=== PATIENT | female | born 1965 | race African-American/Black ===

== ENCOUNTER 2017-11-17 19:14 | Emergency (ER) | END 2017-11-17 20:10 | disposition home or self-care (01) ==

== ENCOUNTER 2019-05-03 12:00 | Emergency (ER) | payer SELFPAY ==
[~2019-05-03] VITALS: Ht 172.7 cm; Wt 108.0 kg
[~2019-05-03 12:00] MED LIST: ACET80DR72; AMOX500C2 PO; GUAI473L22 PO; IBUP-1542 PO; PHEN20SP2; SODI30SP2 NS
[2019-05-03 12:16] VITALS: BP 134/78; PULSE 81; RESP 18; Ht 172.7 cm; Wt 108.0 kg
[2019-05-03] MEDS ORDERED: IBUP-1542 PO (12:56)
[2019-05-03] MEDS ORDERED: AMOX500C2 PO (12:56)
--- NOTE | 2019-05-03 13:00 | ERD ---
ER Documentation Chief Complaint Chief Complaint pt is bib self with c/o sore throat and cough for 3 days HPI 54-year-old female presents with sore throat and chills for last 3 days. Her s on was recently treated for strep throat last week. She denies cough, shortness breath, chest pain, vomiting, abdominal pain. ROS All systems reviewed and are negative except as per history of present illness. Medications Home Meds Active Scripts Ibuprofen* (Motrin*) 600 Mg Tab, 600 MG PO Q6, #15 TAB Prov:CASEY VELAZQUEZ MD 05/03/19 Amoxicillin* (Amoxicillin*) 500 Mg Cap, 500 MG PO TID for 10 Days, CAP Prov:CASEY VELAZQUEZ MD 05/03/19 Ibuprofen* (Motrin*) 600 Mg Tab, 600 MG PO Q6, #30 TAB Prov:ARNOL HANSON PA-C 11/17/17 Amoxicillin* (Amoxicillin*) 500 Mg Cap, 500 MG PO TID for 10 Days, CAP Prov:ARNOL HANSON PA-C 11/17/17 Guaifenesin-Codeine Phosphate* (Guaifenesin* AC Cough Syrup) 473 Ml Liquid, 5 ML PO Q4H PRN for COUGH, #120 ML Prov:THOMAS KING. 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 Ibuprofen* (Motrin*) 600 Mg Tab, 600 MG PO Q6, #30 TAB Prov:RYAN SMITH PA-C 04/25/16 Amoxicillin* (Amoxicillin*) 500 Mg Cap, 500 MG PO TID for 10 Days, CAP Prov:RYAN SMITH PA-C 04/25/16 Reported Medications Phenol (Chloraseptic) 20 Ml [place], PRN 01/25/13 Acetaminophen (Tylenol) 80 Mg/0.8 Ml Drops.susp, PRN 01/25/13 Allergies Allergies: Coded Allergies: No Known Allergy (Verified , 11/17/17) PMhx/Soc History of Surgery: Yes (HYSTERECTOMY, FIBROIDS) Anesthesia Reaction: No Hx Neurological Disorder: No Hx Respiratory Disorders: No Hx Cardiac Disorders: No Hx Psychiatric Problems: No Hx Alcohol Use: No Hx Substance Use: No Hx Tobacco Use: No FmHx Family History: No diabetes, No coronary disease, No other Physical Exam Vitals Vital Signs Date Temp Pulse Resp B/P (MAP) Pulse Ox O2 O2 Flow FiO2 Time Delivery Rate 05/03/19 98.1 81 18 134/78 98 12:16 (96) Physical Exam Const: No acute distress Head: Atraumatic Eyes: Normal Conjunctiva ENT: Normal External Ears, Nose and Mouth. TMs normal. Tonsils 3+ with erythema. Airway patent. Uvula midline. Tender anterior cervical lymph nodes. Neck: Full range of motion. No meningismus. Resp: Clear to auscultation bilaterally Cardio: Regular rate and rhythm, no murmurs Abd: Soft, non tender, non distended. Normal bowel sounds Skin: No petechiae or rashes Back: No midline or flank tenderness Ext: No cyanosis, or edema Neur: Awake and alert Psych: Normal Mood and Affect Procedures/MDM Patient presents with signs and symptoms of acute exudative pharyngitis without signs of abscess, airway obstruction. Treatment options were discussed with patient. Throat culture and rapid strep was recommended but patient is requesting empiric treatment with antibiotics given recent diagnosis of son. Per patient request findings on exam patient will be treated with Amoxil, ibuprofen, primary care follow-up and return precautions. The patient was s table with no new complaints during the ER course. Clinically, there is no current evidence to suggest meningitis, sepsis, acute abdomen, pneumonia, stroke, acute coronary syndrome, pulmonary embolism, aortic dissection or any other emergent condition appearing to require further evaluation or hospitalization. Patient counseled regarding my diagnostic impression and care plan. Prior to discharge all questions answered. Pt agrees with treatment plan and understands strict return precautions. Pt is instructed to follow up with primary care provider within 24-48 hours. Precautionary instructions provided including instructions to return to the ER if not improving or for any worsening or changing symptoms or concerns. Disclaimer: Inadvertent spelling and grammatical errors are likely due to EHR/dictation software use and do not reflect on the overall quality of patient care. Also, please note that the electronic time recorded on this note does not necessarily reflect the actual time of the patient encounter. Departure Diagnosis: Primary Impression: Sore throat Condition: Stable Patient Instructions: Pharyngitis, Strep (Presumed) Referrals: NO PRIMARY,CARE PHYSICIAN (PCP) Additional Instructions: Recheck for new or worsening symptoms with primary care doctor. CASEY VELAZQUEZ MD May 03, 2019 13:00
== END 2019-05-03 13:41 | disposition home or self-care (01) ==
LOC: FTE 12:00
DX: J02.9 Acute pharyngitis, unspecified (principal)
CPT/HCPCS: 99283